=== PATIENT | male | born 1945 | race Caucasian/White ===

== ENCOUNTER 2023-07-19 13:39 | Inpatient (IN) | payer MEDICARE, BC ==
[2023-07-19] MEDS: Sodium Chloride 0.9% 1,000 ML IV ONE ×3 (14:02→17:52)
[2023-07-19 14:05] LABS: HEMATOCRIT 33.5 % (42.0-52.0); HEMOGLOBIN 11.4 gm/dl (14.0-18.0); MEAN CORPUSCULAR HEMOGLOBIN 31.6 pg (28.0-32.0); MEAN CORPUSCULAR VOLUME 92.8 fl (83.0-99.0); MEAN PLATELET VOLUME 8.8 fl (9.4-12.4); PLATELET COUNT,PLT 135 K/mm3 (150-400); RED BLOOD CELL COUNT 3.61 M/mm3 (4.52-5.90); WHITE BLOOD CELL COUNT,WBC 11.98 K/mm3 (3.9-11.3)
[2023-07-19 14:12] LABS: INR 1.2; PROTHROMBIN TIME 12.7 SECONDS (9.7-12.0)
[2023-07-19 14:21] LABS: A/G RATIO 0.5 (1-2); ALBUMIN 2.5 g/dl (3.4-5.0); ALKALINE PHOSPHATASE 93 U/L (46-116); ANION GAP 24.3 (5-15); ASPARTATE AMNIOTRANSFERASE,AST 18 U/L (15-37); BILIRUBIN TOTAL 1.4 mg/dL (0.2-1.0); BLOOD UREA NITROGEN,BUN 43 mg/dL (7-18); CALCIUM 8.2 mg/dL (8.5-10.1); CARBON DIOXIDE,CO2 18 mEq/L (21-32); CHLORIDE,CL 96 mEq/L (98-107); CREATININE 5.4 mg/dL (0.7-1.3); EST CRCL DRUG DOSING (CG) 10.56 mL/min; ESTIMATED GFR 10 mL/min (>60); GLUCOSE RANDOM 288 mg/dL (70-99); LACTIC ACID 7.2 mmol/L (0.4-2.0); POTASSIUM,K 3.3 mEq/L (3.5-5.1); PROTEIN TOTAL,TP 7.1 g/dl (6.4-8.2); SODIUM,NA 135 mEq/L (136-145); TSH 1.909 uIU/mL (0.358-3.74)
[2023-07-19 14:24] LABS: TROPONIN I HIGH SENSITIVITY 128 pg/mL (<=76)
[2023-07-19 14:28] LABS: BAND PERCENT MAN 1 % (0-10); BASOPHILS PERCENT MAN 1 (0.2-1.2); EOSINOPHILS PERCENT MAN 0 % (0.8-7.0); LYMPHOCYTES % ATYPICAL MANUAL 0 %; LYMPHOCYTES PERCENT MAN 4 % (20-40); MONOCYTES PERCENT MAN 3 % (2-10)
[2023-07-19 14:30] LABS: OVALOCYTES 1+ SLIGHT; PLATELET COUNT ESTIMATE DECREASED; TOXIC GRANULATION 1+ SLIGHT
[2023-07-19 14:33] LABS: C-REACTIVE PROTEIN > 25.00 mg/dL (<0.30)
[2023-07-19 15:22] LABS: ALANINE AMINOTRANSFERASE,ALT < 6 U/L (16-63)
[2023-07-19] MEDS: cefTRIAXone 2 GM in Sodium Chloride 0.9% 100 ML IV ONE (16:07)
[2023-07-19] MEDS: Sodium Chloride 0.9% 10 ML Syringe FLUSH PRN (16:55)
[2023-07-19] MEDS: HYDROmorphone 0.5 MG/0.5 ML Syringe IVPUSH ONE (17:12)
[2023-07-19 17:33] LABS: COLOR,URINE PINK (Yellow)
[2023-07-19 17:34] LABS: APPEARANCE,URINE TURBID (Clear); BILIRUBIN,URINE 1+ (Negative); GLUCOSE,URINE NEGATIVE (Negative); KETONES,URINE NEGATIVE (Negative); NITRITE,URINE NEGATIVE (Negative); OCCULT BLOOD,URINE 3+ (Negative); PROTEIN,URINE 3+ (Negative); UROBILINOGEN,URINE 0.2 (0.2-1.0)
[2023-07-19 17:35] LABS: BACTERIA,URINE MANY /hpf (FEW); LEUKOCYTE ESTERASE,URINE 2+ (Negative); RBC,URINE 50-75 /hpf (0-5); SQUAMOUS EPITHELIAL CELLS,UR 0-5 /hpf (0-5); WBC,URINE >100 /hpf (0-5)
[2023-07-19 17:36] LABS: MUCUS,URINE FEW /hpf (FEW)
[2023-07-19] MEDS ORDERED: Acetaminophen/HYDROcodone 325-5 MG Tab PO PRN (18:04)
[2023-07-19] MEDS ORDERED: HYDROmorphone 0.5 MG/0.5 ML Syringe IVPUSH PRN (18:04)
[2023-07-19] MEDS ORDERED: Ondansetron 4 MG/2 ML SDV IV PRN (18:04)
[2023-07-19] MEDS ORDERED: Meropenem 1 GM in Sodium Chloride 0.9% 100 ML IV SCH (18:15)
[2023-07-19 19:47] LABS: FERRITIN 450 ng/ml (26-388); IRON,FE 17 ug/dL (65-175); PERCENT FE SATURATION 10 % (20-55); TRANSFERRIN 130 mg/dL (202-364)
[2023-07-19 20:00] LABS: TOTAL IRON BINDING CAPACITY 163 ug/dL (100-400)
[2023-07-19] MEDS ORDERED: Meropenem Premix 500 MG in Premix Bag 1 BAG IV SCH (20:00)
[2023-07-19] MEDS: Heparin Sodium 5,000 Units/ML Vial SUBCUT SCH (20:10)
[2023-07-19] MEDS: VANCOmycin 1.5 GM/300 ML 1.5 GM in Premix Bag 1 BAG IV ONE (20:10)
[2023-07-19] MEDS ORDERED: Metoprolol Tartrate 50 MG Tab PO SCH (21:00)
[2023-07-19] MEDS ORDERED: Meropenem 0.5 GM in Sodium Chloride 0.9% 100 ML IV SCH (23:10)
[2023-07-19] MEDS: Meropenem 500 MG in Sodium Chloride 0.9% 100 ML IV SCH (23:25)
[2023-07-19] MEDS: Doxazosin 2 MG Tab PO SCH (23:30)
[2023-07-19] MEDS: Metoprolol Tartrate 25 MG Tab PO SCH (23:31)
[2023-07-19] MEDS: Sodium Bicarbonate 650 MG Tab PO SCH (23:31)
[2023-07-19] MEDS: Meropenem 1 GM SDV ONE (23:42)
[2023-07-19] MEDS: Sodium Chloride 0.9% 100 ML ONE (23:42)
[2023-07-19] MEDS: Sertraline 50 MG Tab PO SCH (23:42)
[2023-07-20] MEDS: Lactated Ringers 1,000 ML IV SCH (00:34)
[2023-07-20 05:20] LABS: BASOPHILS PERCENT AUTO 0.2 % (0.0-1.0); EOSINOPHILS PERCENT AUTO 0.3 % (0.0-6.0); HEMATOCRIT 26.6 % (42.0-52.0); IMMATURE GRAN ABSOLUTE AUTO 0.03 K/mm3 (0.00-0.05); IMMATURE GRAN PERCENT AUTO 0.3 % (0.0-0.4); LYMPHOCYTES ABSOLUTE AUTO 0.7 K/mm3 (1.0-4.8); LYMPHOCYTES PERCENT AUTO 7.3 % (24.0-44.0); MEAN CORPUSCULAR HEMOGLOBIN 31.4 pg (28.0-32.0); MEAN CORPUSCULAR HGB CONC 34.6 g/dl (32.0-36.0); MEAN CORPUSCULAR VOLUME 90.8 fl (83.0-99.0); MEAN PLATELET VOLUME 8.3 fl (9.4-12.4); MONOCYTES ABSOLUTE AUTO 0.7 K/mm3 (0.0-0.8); MONOCYTES PERCENT AUTO 6.8 % (0.0-8.0); NEUTROPHILS ABSOLUTE AUTO 8.5 K/mm3 (1.8-7.7); NEUTROPHILS PERCENT AUTO 85.1 % (41.0-71.0); PLATELET COUNT,PLT 107 K/mm3 (150-400); RED BLOOD CELL COUNT 2.93 M/mm3 (4.52-5.90); WHITE BLOOD CELL COUNT,WBC 9.99 K/mm3 (3.9-11.3)
[2023-07-20 05:32] LABS: HEMOGLOBIN 9.2 gm/dl (14.0-18.0)
[2023-07-20 05:40] LABS: ANION GAP 17.9 (5-15); BUN/CREATININE RATIO 9.6 (14-18); CALCIUM 7.5 mg/dL (8.5-10.1); CREATININE 4.6 mg/dL (0.7-1.3); EST CRCL DRUG DOSING (CG) 12.39 mL/min; POTASSIUM,K 2.9 mEq/L (3.5-5.1)
[2023-07-20] MEDS: Insulin Lispro 100 Unit/ML 3 ML KwikPen SUBCUT SCH ×2 (07:49→07:51)
[2023-07-20] MEDS: Potassium Chloride 10 MEQ in Premix Bag 1 BAG IV ONE (08:46)
[2023-07-20] MEDS: Acetaminophen 325 MG Tab PO PRN (08:47)
[2023-07-20] MEDS: Ferrous Sulfate 324 MG Tab.EC PO SCH (08:47)
[2023-07-20] MEDS: Calcitriol 0.25 MCG Cap PO SCH (08:48)
[2023-07-20] MEDS: Aspirin 81 MG Tab.Chew PO SCH (08:48)
[2023-07-20] MEDS: atorvaSTATin 40 MG Tab PO SCH (08:48)
[2023-07-20] MEDS: Sevelamer Carbonate 800 MG Tab PO SCH (08:49)
[2023-07-20] MEDS: predniSONE 5 MG Tab PO SCH (08:49)
[2023-07-20] MEDS: Potassium Chloride 20 MEQ Tab.ER PO ONE (08:49)
[2023-07-20] MEDS: ABIRATERONE ACETATE 250 MG PO SCH (08:50)
[2023-07-20] MEDS ORDERED: CHOLECALCIFEROL 10 MCG PO SCH (09:00)
[2023-07-20] MEDS: Meropenem 500 MG in Sodium Chloride 0.9% 100 ML IV SCH (10:56)
[2023-07-20] MEDS: Sodium Chloride 0.9% 1,000 ML IV SCH (14:25)
[2023-07-20] MEDS: VANCOmycin 500 MG/100 ML 500 MG in Premix Bag 1 BAG IV SCH (21:08)
[2023-07-21 05:48] LABS: BASOPHILS PERCENT AUTO 0.2 % (0.0-1.0); EOSINOPHILS ABSOLUTE AUTO 0.1 K/mm3 (0.0-0.4); EOSINOPHILS PERCENT AUTO 0.8 % (0.0-6.0); HEMATOCRIT 25.3 % (42.0-52.0); HEMOGLOBIN 8.8 gm/dl (14.0-18.0); IMMATURE GRAN ABSOLUTE AUTO 0.04 K/mm3 (0.00-0.05); IMMATURE GRAN PERCENT AUTO 0.5 % (0.0-0.4); LYMPHOCYTES ABSOLUTE AUTO 0.7 K/mm3 (1.0-4.8); LYMPHOCYTES PERCENT AUTO 7.7 % (24.0-44.0); MEAN CORPUSCULAR HEMOGLOBIN 31.3 pg (28.0-32.0); MEAN CORPUSCULAR HGB CONC 34.8 g/dl (32.0-36.0); MEAN PLATELET VOLUME 8.4 fl (9.4-12.4); MONOCYTES ABSOLUTE AUTO 0.6 K/mm3 (0.0-0.8); MONOCYTES PERCENT AUTO 6.2 % (0.0-8.0); NEUTROPHILS ABSOLUTE AUTO 7.5 K/mm3 (1.8-7.7); NEUTROPHILS PERCENT AUTO 84.6 % (41.0-71.0); PLATELET COUNT,PLT 125 K/mm3 (150-400); RED BLOOD CELL COUNT 2.81 M/mm3 (4.52-5.90); WHITE BLOOD CELL COUNT,WBC 8.88 K/mm3 (3.9-11.3)
[2023-07-21 06:12] LABS: ANION GAP 16.2 (5-15); BUN/CREATININE RATIO 10.9 (14-18); CALCIUM 8.1 mg/dL (8.5-10.1); CREATININE 4.4 mg/dL (0.7-1.3); EST CRCL DRUG DOSING (CG) 12.95 mL/min; POTASSIUM,K 3.2 mEq/L (3.5-5.1)
[2023-07-21] MEDS: Potassium Chloride 20 MEQ Tab.ER PO ONE (08:58)
[2023-07-21] MEDS: Metoprolol Tartrate 25 MG Tab PO SCH (08:59)
[2023-07-21] MEDS: Insulin Lispro 100 Unit/ML 3 ML KwikPen SUBCUT SCH (09:00)
[2023-07-21] MEDS: amLODIPine 5 MG Tab PO SCH (09:04)
[2023-07-21] MEDS: Calcium Carbonate 500 MG Tab.Chew PO SCH (09:05)
[2023-07-21] MEDS ORDERED: Loperamide 2 MG Cap PO PRN (19:42)
[2023-07-22 05:33] LABS: ANION GAP 16.5 (5-15); BUN/CREATININE RATIO 10.2 (14-18); CALCIUM 8.1 mg/dL (8.5-10.1); CREATININE 4.1 mg/dL (0.7-1.3); EST CRCL DRUG DOSING (CG) 13.9 mL/min; POTASSIUM,K 3.5 mEq/L (3.5-5.1)
[2023-07-22 05:36] LABS: BASOPHILS PERCENT AUTO 0.2 % (0.0-1.0); EOSINOPHILS ABSOLUTE AUTO 0.1 K/mm3 (0.0-0.4); EOSINOPHILS PERCENT AUTO 1.4 % (0.0-6.0); HEMATOCRIT 24.4 % (42.0-52.0); HEMOGLOBIN 8.5 gm/dl (14.0-18.0); IMMATURE GRAN ABSOLUTE AUTO 0.04 K/mm3 (0.00-0.05); IMMATURE GRAN PERCENT AUTO 0.5 % (0.0-0.4); LYMPHOCYTES PERCENT AUTO 11.8 % (24.0-44.0); MEAN CORPUSCULAR HGB CONC 34.8 g/dl (32.0-36.0); MEAN CORPUSCULAR VOLUME 89.1 fl (83.0-99.0); MEAN PLATELET VOLUME 9.9 fl (9.4-12.4); MONOCYTES ABSOLUTE AUTO 0.5 K/mm3 (0.0-0.8); MONOCYTES PERCENT AUTO 6.1 % (0.0-8.0); NEUTROPHILS ABSOLUTE AUTO 6.9 K/mm3 (1.8-7.7); PLATELET COUNT,PLT 137 K/mm3 (150-400); RED BLOOD CELL COUNT 2.74 M/mm3 (4.52-5.90); WHITE BLOOD CELL COUNT,WBC 8.64 K/mm3 (3.9-11.3)
[2023-07-22] MEDS: Heparin Sodium 5,000 Units/ML Vial SUBCUT SCH (07:48)
[2023-07-22] MEDS ORDERED: Labetalol 100 MG/20 ML MDV IVPUSH PRN (08:07)
[2023-07-22] MEDS ORDERED: Labetalol 100 MG/20 ML MDV IV PRN (08:15)
[2023-07-22] MEDS: amLODIPine 10 MG Tab PO SCH (09:55)
[2023-07-22] MEDS: Levofloxacin 500 MG Tab PO SCH (09:58)
[2023-07-22] MEDS: Metoprolol Tartrate 50 MG Tab PO SCH (09:58)
== END 2023-07-22 18:57 | disposition home or self-care (01) | DRG 698 ==
LOC: JD.ED 13:39 → JD.MS 18:13
PROVIDERS: ADMIT Student in an Organized Health Care Education/Training Program; ATTEND Student in an Organized Health Care Education/Training Program
PROC: 3E03329 Introduction of Other Anti-infective into Peripheral Vein, Percutaneous Approach (ICD-10-PCS; principal; 2023-07-19)
PROC: 0T2BX0Z Change Drainage Device in Bladder, External Approach (ICD-10-PCS; 2023-07-19)
DX: T83.511A Infection and inflammatory reaction due to indwelling urethral catheter, initial encounter (principal); A41.9 Sepsis, unspecified organism; A41.51 Sepsis due to Escherichia coli [E. coli]; R65.20 Severe sepsis without septic shock; N28.9 Disorder of kidney and ureter, unspecified; Z85.46 Personal history of malignant neoplasm of prostate; I12.0 Hypertensive chronic kidney disease with stage 5 chronic kidney disease or end stage renal disease; N18.9 Chronic kidney disease, unspecified; C78.02 Secondary malignant neoplasm of left lung; E11.9 Type 2 diabetes mellitus without complications; N17.9 Acute kidney failure, unspecified; E87.1 Hypo-osmolality and hyponatremia; E87.20 Acidosis, unspecified; N39.0 Urinary tract infection, site not specified; E86.0 Dehydration; C61 Malignant neoplasm of prostate; N18.30 Chronic kidney disease, stage 3 unspecified; E78.00 Pure hypercholesterolemia, unspecified; I12.9 Hypertensive chronic kidney disease with stage 1 through stage 4 chronic kidney disease, or unspecified chronic kidney disease; E11.22 Type 2 diabetes mellitus with diabetic chronic kidney disease; F32.A Depression, unspecified; E03.9 Hypothyroidism, unspecified; N13.9 Obstructive and reflux uropathy, unspecified; R62.7 Adult failure to thrive; I25.10 Atherosclerotic heart disease of native coronary artery without angina pectoris; E87.6 Hypokalemia; E83.39 Other disorders of phosphorus metabolism; D72.829 Elevated white blood cell count, unspecified; D63.1 Anemia in chronic kidney disease; D69.6 Thrombocytopenia, unspecified; D50.9 Iron deficiency anemia, unspecified; Z88.8 Allergy status to other drugs, medicaments and biological substances; Z88.0 Allergy status to penicillin; Z79.82 Long term (current) use of aspirin; Z79.899 Other long term (current) drug therapy; Z95.5 Presence of coronary angioplasty implant and graft; Z90.49 Acquired absence of other specified parts of digestive tract; Z98.84 Bariatric surgery status; Z98.890 Other specified postprocedural states; Z98.1 Arthrodesis status; Z87.891 Personal history of nicotine dependence; Z68.29 Body mass index [BMI] 29.0-29.9, adult; Z95.828 Presence of other vascular implants and grafts
CPT/HCPCS: 36415; 51702; 70450; 71045; 80053; 81001 ×2; 82728; 83540; 83605 ×2; 83735; 84100; 84443; 84466; 84484; 85007; 85027; 85610; 86140; 87040 ×2; 87086; 87088; 87186; 96361; 96365; 96375; 99285; J0696; J1170; J3490 ×2; J7030 ×3; 80048; 80202; 82947; 84132; 85025; 92610-GN; 97162-GP; 99223; 99232; 99239; A9270-GY; J1644; J1815; J2185; J3370; J3480; J7120; J7512

== ENCOUNTER 2023-08-11 15:33 | Emergency (ER) | payer MEDICARE, BC ==
[2023-08-11 16:36] LABS: HEMATOCRIT 34.3 % (42.0-52.0); HEMOGLOBIN 11.8 gm/dl (14.0-18.0); MEAN CORPUSCULAR HEMOGLOBIN 31.5 pg (28.0-32.0); MEAN CORPUSCULAR HGB CONC 34.4 g/dl (32.0-36.0); MEAN CORPUSCULAR VOLUME 91.5 fl (83.0-99.0); MEAN PLATELET VOLUME 8.9 fl (9.4-12.4); PLATELET COUNT,PLT 145 K/mm3 (150-400); RED BLOOD CELL COUNT 3.75 M/mm3 (4.52-5.90); WHITE BLOOD CELL COUNT,WBC 18.48 K/mm3 (3.9-11.3)
[2023-08-11 16:58] LABS: INR 1.23
[2023-08-11 16:59] LABS: PTT,PARTIAL THROMBOPLSTIN TIME 36.8 SECONDS (21.7-31.4)
[2023-08-11 17:06] LABS: A/G RATIO 0.5 (1-2); ALANINE AMINOTRANSFERASE,ALT 9 U/L (16-63); ALBUMIN 2.4 g/dl (3.4-5.0); ALKALINE PHOSPHATASE 87 U/L (46-116); ANION GAP 21.1 (5-15); ASPARTATE AMNIOTRANSFERASE,AST 12 U/L (15-37); BILIRUBIN TOTAL 0.9 mg/dL (0.2-1.0); BLOOD UREA NITROGEN,BUN 53 mg/dL (7-18); BUN/CREATININE RATIO 7.7 (14-18); CALCIUM 7.7 mg/dL (8.5-10.1); CARBON DIOXIDE,CO2 21 mEq/L (21-32); CHLORIDE,CL 97 mEq/L (98-107); CREATININE 6.9 mg/dL (0.7-1.3); ESTIMATED GFR 7 mL/min (>60); GLUCOSE RANDOM 148 mg/dL (70-99); POTASSIUM,K 4.1 mEq/L (3.5-5.1); PROTEIN TOTAL,TP 6.9 g/dl (6.4-8.2); SODIUM,NA 135 mEq/L (136-145); TROPONIN I HIGH SENSITIVITY 38 pg/mL (<=76)
[2023-08-11 17:13] LABS: C-REACTIVE PROTEIN > 25.00 mg/dL (<0.30)
[2023-08-11 17:14] LABS: LACTIC ACID 3.5 mmol/L (0.4-2.0)
[2023-08-11 17:25] LABS: BAND PERCENT MAN 2 % (0-10); BASOPHILS PERCENT MAN 0 (0.2-1.2); EOSINOPHILS PERCENT MAN 0 % (0.8-7.0); LYMPHOCYTES % ATYPICAL MANUAL 3 %; LYMPHOCYTES PERCENT MAN 5 % (20-40); MONOCYTES PERCENT MAN 9 % (2-10)
[2023-08-11 17:27] LABS: TOXIC GRANULATION FEW
[2023-08-11 17:46] LABS: CORONAVIRUS COVID-19 NAA NEGATIVE (NEGATIVE); INFLUENZA A NAA NEGATIVE (NEGATIVE); RESPIRATORY SYNCYTIAL VIR NAA NEGATIVE (NEGATIVE)
[2023-08-11] MEDS: cefTRIAXone 2 GM in Sodium Chloride 0.9% 100 ML IV ONE (17:54)
[2023-08-11] MEDS: Hydrocortisone Sodium Succinate 100 MG/2 ML SDV IVPUSH ONE (17:56)
[2023-08-11] MEDS: Sodium Chloride 0.9% 1,000 ML IV SCH (17:58)
[2023-08-11] MEDS: Diltiazem 25 MG/5 ML SDV IVPUSH ONE (18:01)
[2023-08-11] MEDS: Diltiazem 125 MG in Sodium Chloride 0.9% 100 ML IV SCH (18:14)
[2023-08-11] MEDS: Acetaminophen 650 MG Supp RECTAL ONE (18:40)
[2023-08-11 19:03] LABS: APPEARANCE,URINE CLEAR (Clear); BILIRUBIN,URINE NEGATIVE (Negative); COLOR,URINE YELLOW (Yellow); GLUCOSE,URINE NEGATIVE (Negative); KETONES,URINE NEGATIVE (Negative); LEUKOCYTE ESTERASE,URINE 3+ (Negative); NITRITE,URINE NEGATIVE (Negative); OCCULT BLOOD,URINE 3+ (Negative); PROTEIN,URINE 3+ (Negative); UROBILINOGEN,URINE 0.2 (0.2-1.0)
[2023-08-11] MEDS: Levofloxacin/Dextrose 5%-Water 750 MG in Premix Bag 1 BAG IV ONE (19:11)
[2023-08-11 19:48] LABS: BACTERIA,URINE MANY /hpf (FEW); MUCUS,URINE NOT SEEN /hpf (FEW); RBC,URINE TOO NUMEROUS TO CNT /hpf (0-5); SQUAMOUS EPITHELIAL CELLS,UR 0-5 /hpf (0-5); WBC,URINE TOO NUMEROUS TO CNT /hpf (0-5)
== END 2023-08-11 20:30 ==
LOC: JD.ED 15:33
DX: T83.098A Other mechanical complication of other urinary catheter, initial encounter (principal); I48.92 Unspecified atrial flutter; N39.0 Urinary tract infection, site not specified; Q62.10 Congenital occlusion of ureter, unspecified; C61 Malignant neoplasm of prostate; I13.2 Hypertensive heart and chronic kidney disease with heart failure and with stage 5 chronic kidney disease, or end stage renal disease; N18.5 Chronic kidney disease, stage 5; I50.9 Heart failure, unspecified; E78.00 Pure hypercholesterolemia, unspecified; E11.9 Type 2 diabetes mellitus without complications; E03.9 Hypothyroidism, unspecified; Z86.16 Personal history of COVID-19; Z88.8 Allergy status to other drugs, medicaments and biological substances; Z88.0 Allergy status to penicillin; Z79.82 Long term (current) use of aspirin; Z79.899 Other long term (current) drug therapy; Z95.5 Presence of coronary angioplasty implant and graft; Y73.2 Prosthetic and other implants, materials and accessory gastroenterology and urology devices associated with adverse incidents
CPT/HCPCS: 0241U; 36415; 51702; 70450; 70450-26; 71045; 71045-26; 74176; 74176-26; 80053; 81001; 83605; 83880; 84484; 85007; 85027; 85610; 85730; 86140; 87040; 87070; 87086; 87205; 93005; 93010; 96365; 96367; 96375; 99285; 99285-25; A9270-GY; J0696; J1720; J1956; J3490; J7030

== ENCOUNTER 2023-11-25 14:09 | Emergency (ER) | payer MEDICARE, BC ==
[2023-11-25 15:40] LABS: BASOPHILS ABSOLUTE AUTO 0.1 K/mm3 (0.0-0.2); BASOPHILS PERCENT AUTO 0.8 % (0.0-1.0); EOSINOPHILS ABSOLUTE AUTO 0.2 K/mm3 (0.0-0.4); EOSINOPHILS PERCENT AUTO 3.7 % (0.0-6.0); HEMATOCRIT 28.3 % (42.0-52.0); HEMOGLOBIN 9.5 gm/dl (14.0-18.0); IMMATURE GRAN ABSOLUTE AUTO 0.02 K/mm3 (0.00-0.05); IMMATURE GRAN PERCENT AUTO 0.3 % (0.0-0.4); LYMPHOCYTES ABSOLUTE AUTO 1.3 K/mm3 (1.0-4.8); LYMPHOCYTES PERCENT AUTO 20.5 % (24.0-44.0); MEAN CORPUSCULAR HEMOGLOBIN 30.8 pg (28.0-32.0); MEAN CORPUSCULAR HGB CONC 33.6 g/dl (32.0-36.0); MEAN CORPUSCULAR VOLUME 91.9 fl (83.0-99.0); MEAN PLATELET VOLUME 7.9 fl (9.4-12.4); MONOCYTES ABSOLUTE AUTO 0.5 K/mm3 (0.0-0.8); MONOCYTES PERCENT AUTO 8.5 % (0.0-8.0); NEUTROPHILS ABSOLUTE AUTO 4.1 K/mm3 (1.8-7.7); NEUTROPHILS PERCENT AUTO 66.2 % (41.0-71.0); PLATELET COUNT,PLT 177 K/mm3 (150-400); RED BLOOD CELL COUNT 3.08 M/mm3 (4.52-5.90); WHITE BLOOD CELL COUNT,WBC 6.15 K/mm3 (3.9-11.3)
[2023-11-25 16:18] LABS: A/G RATIO 0.8 (1-2); ALBUMIN 2.9 g/dl (3.4-5.0); BILIRUBIN TOTAL 0.3 mg/dL (0.2-1.0); BUN/CREATININE RATIO 8.9 (14-18); CREATININE 3.5 mg/dL (0.7-1.3); EST CRCL DRUG DOSING (CG) 16.29 mL/min; MAGNESIUM 2.2 mg/dL (1.8-2.4); PROTEIN TOTAL,TP 6.5 g/dl (6.4-8.2)
[2023-11-25 16:21] LABS: CALCIUM 5.2 mg/dL (8.5-10.1)
[2023-11-25] MEDS: Calcium Gluconate 10% 1 GM/10 ML SDV IVPUSH ONE ×3 (17:05→19:50)
[2023-11-25] MEDS: Sodium Chloride 0.9% 1,000 ML IV SCH (17:05)
[2023-11-25] MEDS: Calcium Carbonate 600 MG Tab PO ONE ×2 (17:41→19:50)
[2023-11-25] MEDS: Sodium Chloride 0.9% 10 ML Syringe FLUSH PRN (18:01)
[2023-11-25 19:04] LABS: BUN/CREATININE RATIO 9.4 (14-18); CREATININE 3.3 mg/dL (0.7-1.3); EST CRCL DRUG DOSING (CG) 17.27 mL/min
[2023-11-25 19:06] LABS: CALCIUM 5.8 mg/dL (8.5-10.1)
== END 2023-11-25 20:00 | disposition home or self-care (01) ==
LOC: JD.ED 14:09
DX: E83.51 Hypocalcemia (principal); I12.9 Hypertensive chronic kidney disease with stage 1 through stage 4 chronic kidney disease, or unspecified chronic kidney disease; N18.9 Chronic kidney disease, unspecified; E11.22 Type 2 diabetes mellitus with diabetic chronic kidney disease; E78.00 Pure hypercholesterolemia, unspecified; E03.9 Hypothyroidism, unspecified; Z88.0 Allergy status to penicillin; Z88.8 Allergy status to other drugs, medicaments and biological substances; Z79.82 Long term (current) use of aspirin; Z79.899 Other long term (current) drug therapy; Z95.5 Presence of coronary angioplasty implant and graft; Z86.16 Personal history of COVID-19
CPT/HCPCS: 36415; 80048; 80053; 83735; 85025; 96361; 96374; 96376; 99284; 99284-25; A9270-GY; J0612; J3490; J7030

== ENCOUNTER 2023-11-26 20:16 | Emergency (ER) | payer MEDICARE, BC ==
[2023-11-26] MEDS: Levofloxacin 500 MG Tab PO ONE (21:29)
[2023-11-26] MEDS: Lidocaine 2% 11 ML Jelly Filled Syringe ONE (21:29)
[2023-11-26] MEDS: Lidocaine 2% 11 ML Jelly Filled Syringe MUCMEM ONE (21:29)
== END 2023-11-26 21:30 | disposition home or self-care (01) ==
LOC: JD.ED 20:16
DX: T83.011A Breakdown (mechanical) of indwelling urethral catheter, initial encounter (principal); I10 Essential (primary) hypertension; E78.00 Pure hypercholesterolemia, unspecified; E11.9 Type 2 diabetes mellitus without complications; Z95.5 Presence of coronary angioplasty implant and graft; Z86.16 Personal history of COVID-19; Z90.49 Acquired absence of other specified parts of digestive tract; Z79.82 Long term (current) use of aspirin; Z79.899 Other long term (current) drug therapy; Z88.0 Allergy status to penicillin; Z88.8 Allergy status to other drugs, medicaments and biological substances
CPT/HCPCS: 51702; 99283; A9270